=== PATIENT | female | born 1990 | race Caucasian/White ===

== ENCOUNTER 2017-03-17 22:20 | Emergency (ER) | payer OTHER | END 2017-03-18 00:48 | disposition home or self-care (01) | LOC: ER1 22:20 | DX: R42 Dizziness and giddiness (principal); Z88.0 Allergy status to penicillin; Z88.2 Allergy status to sulfonamides | CPT/HCPCS: 81001; 84703; 87077; 87086; 87186; 93005; 99284 ==

== ENCOUNTER 2017-04-05 01:29 | Emergency (ER) | payer OTHER ==
[2017-04-05 02:54] LABS: HEMOGLOBIN 12.3 gm/dl (12.3-15.3); RED BLOOD COUNT 4.49 M/UL (4.00-5.10); WHITE BLOOD COUNT 12.5 K/UL (4.5-11.0)
[2017-04-05 03:05] LABS: BUN/CREATININE RATIO 22 (0-10)
== END 2017-04-05 05:05 | disposition home or self-care (01) ==
LOC: ER1 01:29
PROVIDERS: Emergency Medicine
DX: O20.0 Threatened abortion (principal); O23.41 Unspecified infection of urinary tract in pregnancy, first trimester; O99.331 Smoking (tobacco) complicating pregnancy, first trimester; F17.200 Nicotine dependence, unspecified, uncomplicated; Z3A.00 Weeks of gestation of pregnancy not specified; Z88.0 Allergy status to penicillin
CPT/HCPCS: 36415; 76830; 80053; 81001; 83690; 84702; 84703; 85025; 86900; 86901; 87077; 87086; 87186; 99284; J0696